=== PATIENT | male | born 1990 | race African-American/Black ===

== ENCOUNTER 2020-06-12 23:34 | Emergency (ER) | payer OTHER ==
[2020-06-12 23:50] VITALS: BP 108/67; PULSE 74; TEMP 98.4; BMI 18.2
[2020-06-13] MEDS ORDERED: CLINDAMYCIN HCL 150 MG CAPSULE (FP) PO ONE (00:20)
[2020-06-13] MEDS ORDERED: KETOROLAC TROMETHAMINE 30 MG/1 ML VIAL IM ONE (00:21)
== END 2020-06-13 00:57 | disposition home or self-care (01) ==
LOC: JER 23:34
PROC: 3E023GC Introduction of Other Therapeutic Substance into Muscle, Percutaneous Approach (ICD-10-PCS; principal; 2020-06-13)
DX: K04.7 Periapical abscess without sinus (principal)
CPT/HCPCS: 99284-25

== ENCOUNTER 2022-02-06 10:37 | Emergency (ER) | payer OTHER ==
[2022-02-06 11:04] VITALS: BP 127/74; PULSE 60; RESP 18; TEMP 98.2; BMI 18.8
[2022-02-06] MEDS ORDERED: METHOCARBAMOL 500 MG TABLET PO ONE (11:51)
[2022-02-06] MEDS ORDERED: METHOCARBAMOL 500 MG TABLET ONE (12:08)
== END 2022-02-06 12:33 | disposition home or self-care (01) ==
LOC: JERFT 10:37 → JER 10:37 → JERFT 12:33
DX: M54.12 Radiculopathy, cervical region (principal)
CPT/HCPCS: 73030-TC-LT-FY; 99283-25

== ENCOUNTER 2022-02-08 15:04 | Emergency (ER) | payer OTHER ==
[2022-02-08 15:15] VITALS: BP 124/74; PULSE 83; RESP 20; TEMP 98; BMI 18.8
[2022-02-08] MEDS ORDERED: KETOROLAC TROMETHAMINE 30 MG/1 ML VIAL IM ONE (15:32)
[2022-02-08] MEDS ORDERED: diazePAM 5 MG TABLET PO ONE (15:32)
[2022-02-08] MEDS ORDERED: diazePAM 5 MG TABLET ONE (15:55)
[2022-02-08] MEDS ORDERED: KETOROLAC TROMETHAMINE 30 MG/1 ML VIAL ONE (15:55)
== END 2022-02-08 16:05 | disposition home or self-care (01) ==
LOC: JERFT 15:04
PROC: 3E023GC Introduction of Other Therapeutic Substance into Muscle, Percutaneous Approach (ICD-10-PCS; principal; 2022-02-08)
DX: M62.838 Other muscle spasm (principal)
CPT/HCPCS: 99284-25